=== PATIENT | male | born 1945 | race Caucasian/White ===

== ENCOUNTER 2016-09-20 10:58 | Inpatient (IN) | payer MEDICARE ==
--- NOTE | ~2016-09-20 | DS ---
Discharge Summary [place] [address] [facility] [place]. [address] NAME: CED CRUMP : 47 STATUS : DIS IN PAT#: [id number] AGE: 71 ADM/REG DATE : 09/20/16 MR#: [id number] REPORT SERV DATE: 09/21/16 DICTATED BY: EDIS MCKEON DATE: 09/20/16 REPORT STATUS : Draft TRANSCRIBED BY: MODL DATE: 09/20/16 ADMISSION DATE: 09/20/2016 DISCHARGE DATE: 09/20/2016 DISCHARGE DIAGNOSES: 1. Laryngeal soft-tissue abscess. 2. Squamous cell carcinoma of the tongue. 3. Severe protein calorie malnutrition. CONSULTANTS: None. HISTORY OF PRESENT ILLNESS: The patient is a 71-year-old male referred directly from Dr. Doherty's office for laryngeal abscess and for further treatment. For detailed history and physical exam, please see my note dictated on 09/20/2016. HOSPITAL COURSE: Once I admitted the patient and explained to him what we were going to do, this patient adamantly refused to stay in the hospital and signed out against medical advice. CHUY/DARREN Edis Mckeon M.D. / [id number] CC: Felicia Chambers MD
--- NOTE | ~2016-09-20 | HP ---
History And Physical [place] [id number] [facility] [place]. [address] NAME: CED CRUMP : 47 STATUS : DIS IN PAT#: [id number] AGE: 71 ADM/REG DATE : 09/20/16 MR#: [id number] REPORT SERV DATE: 09/20/16 DICTATED BY: EDIS MCKEON DATE: 09/20/16 REPORT STATUS : Draft TRANSCRIBED BY: MODL DATE: 09/20/16 DATE OF ADMISSION: 09/20/2016 CHIEF COMPLAINT: Neck swelling. HISTORY OF PRESENT ILLNESS: The patient is a 71-year-old white male referred directly from Dr. Marquess Doherty's office for prelaryngeal abscess and cellulitis. This patient is unable to tell me when this was done. He recently had a tooth pulled and has been on amoxicillin, but he continued to have this swelling. He is not having any difficulty swallowing. He reports that, in fact his swallowing has improved since he started the chemotherapy. He denies any nausea, vomiting, fever, chills. No pain. He reports that, he does not want to stay overnight in the hospital and wants to go home and come back tomorrow if necessary. He offers no other complaints. REVIEW OF SYSTEMS: He has lost significant amount of weight since diagnosis of his cancer from 210 pounds down to 135 pounds. He has chronic drooling that has been there. PAST SURGICAL HISTORY: Tooth pulled. ALLERGIES: TO CORTISONE. HOME MEDICATIONS: Unavailable at this time. SOCIAL HISTORY: He was a smoker in the past, quit many many years ago, not much use of alcohol. No use of illicit substances. FAMILY HISTORY: Mother with breast cancer. Sister with breast cancer. PHYSICAL EXAMINATION: GENERAL: White male, sitting on the bed, appears to be in no obvious respiratory distress. He is awake, alert. He is fully oriented to time, place, and person. VITAL SIGNS: Blood pressure 114/61, temperature is 97.9, pulse of 103, saturation of 95%. HEENT: Head is normocephalic, atraumatic. Pupils are equal, round, and reactive to light. Extraocular muscles are intact. Sclerae anicteric. Conjunctivae normal. Oropharynx without lesion. Tongue protrusion midline. Uvula midline. NECK: Supple. There is an approximately 1 inch x 1 inch of mass in front of his larynx that is tender to palpation, fluctuation, warm to touch, and erythematous. No extending cellulitis except in the surrounding area of the mass. No lymphadenopathy is palpable. HEART: Regular rate and rhythm. No murmurs, rubs, or gallops are heard. LUNGS: Clear to auscultation both anteriorly and posteriorly without rales, rhonchi, wheezing, or consolidation. ABDOMEN: Soft, nontender, good bowel sounds. EXTREMITIES: Without cyanosis, clubbing, or edema. NEUROLOGICAL: Seems to be grossly intact. History And Physical [address] [place]. [address] NAME: CED CRUMP : 47 STATUS : DIS IN PAT#: [id number] AGE: 71 ADM/REG DATE : 09/20/16 MR#: [id number] REPORT SERV DATE: 09/20/16 DICTATED BY: EDIS MCKEON DATE: 09/20/16 REPORT STATUS : Draft TRANSCRIBED BY: DARREN DATE: 09/20/16 LABORATORIES: No labs are available at this time. IMPRESSION: 1. Prelaryngeal abscess of the soft tissue with associated cellulitis. 2. Squamous cell carcinoma of the tongue, currently under adjuvant chemotherapy. 3. Severe protein-calorie malnutrition. PLAN: The patient will be admitted. ENT consultation will be done. IV Unasyn will be initiated. CT of the neck with contrast will be initiated. Discussed with the patient and daughter, this patient is not willing to stay overnight in the hospital and wants to leave even if it meant against medical advice at this time. This patient more likely leave AMA today and not willing to stay in the hospital. The patient remains a full code. CHUY/JOYCEL Edis Mckeon M.D. / [id number] CC: Felicia Chambers MD Bertrand Marquess Anz III, M.D.
== END 2016-09-20 14:08 | disposition left against medical advice (07) | DRG 152 ==
LOC: 4EA 10:58
DX: J39.1 Other abscess of pharynx (principal); E43 Unspecified severe protein-calorie malnutrition; Z68.1 Body mass index [BMI] 19.9 or less, adult; C02.9 Malignant neoplasm of tongue, unspecified
CPT/HCPCS: J0295